=== PATIENT | male | born 1985 | race Caucasian/White ===

== ENCOUNTER 2016-11-05 21:02 | Emergency (ER) | payer OTHER, BC ==
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
[2016-11-05 20:23] LABS: BASOPHIL# 0.1 X10e3 (0-0.3); BASOPHIL% 0.5 % (0-2.5); EOSINOPHIL% 0.2 % (0.0-7.0); HEMATOCRIT 47.2 % (38.0-50.0); HEMOGLOBIN 15.9 gm/dL (13.0-16.0); LYMPHOCYTE# 2.6 X10e3 (1.0-3.5); LYMPHOCYTE% 15.6 % (17.0-45.0); MEAN CELL VOLUME 89.7 FL (83-96); MEAN CORPUSCULAR HEMOGLOBIN 30.2 PG (28-34); MEAN CORPUSCULAR HGB CONC 33.7 g/dL (30-36); MEAN PLATELET VOLUME 10.7 FL (6.5-11.5); MONOCYTE% 6.2 % (3.0-12.0); NEUTROPHIL# 12.7 X10e3 (1.5-7.1); NEUTROPHIL% 77.5 % (40-75); PLATELET COUNT 191 X10e3 (140-420); RED BLOOD COUNT 5.26 X10e (3.90-5.60); RED CELL DISTRIBUTION WIDTH 14.8 % (11.0-15.5); WHITE BLOOD COUNT 16.4 X10e3 (4.0-10.5)
[2016-11-05 20:25] LABS: DIFF IND YES
[2016-11-05 20:41] LABS: ALBUMIN SERUM 5.2 g/dL (3.5-5.0); ALKALINE PHOSPHATASE 66 U/L (32-92); ALT (SGPT) 33 U/L (10-40); AST (SGOT) 38 U/L (10-42); BILIRUBIN, DIRECT 0.1 mg/dL (0.0-0.2); BILIRUBIN,INDIRECT 0.5 mg/dL (0.0-0.9); BILIRUBIN,TOTAL 0.6 mg/dL (0.2-2.0); BLOOD UREA NITROGEN 18 mg/dL (9-23); BUN/CREATININE RATIO 16.36; CALCIUM SERUM 9.9 mg/dL (8.4-10.2); CARBON DIOXIDE 21 mmol/L (22-31); CHLORIDE 102 mmol/L (100-111); CREATININE SERUM 1.1 mg/dL (0.6-1.4); GLOM FILT RATE Estimated ABOVE60 mL/min (>60); GLUCOSE FASTING 98 mg/dL (70-110); LIPASE 22 U/L (22-51); POTASSIUM 3.8 mmol/L (3.5-5.1); SODIUM 136 mmol/L (135-145)
[2016-11-05 20:53] LABS: PLATELET ESTIMATE NORMAL (NORMAL); POIKILOCYTOSIS SL; TEAR DROP CELLS PRESENT
[2016-11-05 22:28] LABS: URINE SOURCE CLEAN CATCH
[2016-11-05 22:42] LABS: URINE APPEARANCE CLEAR; URINE BILIRUBIN NEG (NEG); URINE BLOOD NEG (NEG); URINE COLOR YELLOW; URINE GLUCOSE NEG (NEG); URINE KETONE 1+ (NEG); URINE LEUKOCYTE ESTERASE NEG (NEG); URINE NITRATE NEG (NEG); URINE PH 5.5 (5-8); URINE PROTEIN NEG (NEG); URINE UROBILINOGEN 0.2 MG/DL (NEG)
[2016-11-05 22:57] LABS: CULTURE INDICATED? NO
== END 2016-11-05 23:05 | disposition home or self-care (01) ==
LOC: CED 21:02
PROVIDERS: Emergency Medicine
DX: S01.512A Laceration without foreign body of oral cavity, initial encounter (principal); R04.0 Epistaxis; F17.200 Nicotine dependence, unspecified, uncomplicated; V43.52XA Car driver injured in collision with other type car in traffic accident, initial encounter; Y92.410 Unspecified street and highway as the place of occurrence of the external cause
CPT/HCPCS: 36415; 70450; 70486; 71260; 72125; 73030; 74177; 80048; 80076; 81003; 83690; 85025; 86850; 86900; 86901; 96360; 99284; Q9967